=== PATIENT | female | born 1980 | race Caucasian/White ===

== ENCOUNTER 2016-10-30 07:36 | Emergency (ER) | payer BC ==
[2016-10-30 07:51] VITALS: BP 163/94
--- NOTE | 2016-10-30 08:10 | UC ---
Eye Complaint HPI - HPI Summary HPI Summary: 36 YEAR OLD FEMALE PRESENTS WITH LEFT EYE REDNESS/DISCHARGE X 1 DAY. - History of Current Complaint Chief Complaint: UCEye Stated Complaint: EYE COMPLAINT Time Seen by Provider: 10/30/16 08:07 Hx Last Menstrual Period: 10/05/16 - Allergies/Home Medications Allergies/Adverse Reactions: Allergies Allergy/AdvReac Type Severity Reaction Status Date / Time Amoxicillin Allergy Severe RASH/HIVES Verified 06/15/15 07:23 PMH/Surg Hx/FS Hx/Imm Hx - Surgical History Surgical History: Yes Surgery Procedure, Year, and Place: tonsils ,wisdom teeth - Family History Known Family History: Positive: Hypertension - Social History Alcohol Use: None Substance Use Type: None Smoking Status (MU): Never Smoked Tobacco Review of Systems Constitutional: Negative Skin: Negative Eyes: Drainage, Eye Redness ENT: Negative Respiratory: Negative Cardiovascular: Negative Gastrointestinal: Negative Genitourinary: Negative Motor: Negative Neurovascular: Negative Musculoskeletal: Negative Neurological: Negative Psychological: Negative All Other Systems Reviewed And Are Negative: Yes Physical Exam Triage Information Reviewed: Yes Vital Signs: Initial Vital Signs Temp 36.6 C 10/30/16 07:47 Pulse 79 10/30/16 07:47 Resp 16 10/30/16 07:47 BP 163/94 10/30/16 07:47 Pulse Ox 100 10/30/16 07:47 Eyes: Positive: Conjunctiva Inflamed, Discharge ENT Exam: Normal Dental Exam: Normal Neck exam: Normal Neck: Positive: 1 Respiratory Exam: Normal Cardiovascular Exam: Normal Abdominal Exam: Normal Musculoskeletal Exam: Normal Neurological Exam: Normal Psychological Exam: Normal Skin Exam: Normal Eye Complaint Course/Dx - Differential Dx/Diagnosis Provider Diagnoses: ALLERGIC CONJUNCTIVITIS LEFT EYE Discharge - Discharge Plan Condition: Stable Disposition: HOME Prescriptions: Polymyx/Trimethoprim OPTH* [Polytrim OPHTH*] 1 drop LEFT EYE Q6H #1 btl Referrals: Darío Bethea MD [Primary Care Provider] - If Needed
== END 2016-10-30 08:16 | disposition home or self-care (01) ==
LOC: UCEAST 07:36
DX: H10.12 Acute atopic conjunctivitis, left eye (principal); Z88.1 Allergy status to other antibiotic agents
CPT/HCPCS: 99212; G0463

== ENCOUNTER 2018-06-30 17:17 | Emergency (ER) | payer BC ==
[2018-06-30 17:27] VITALS: BP 156/100
--- NOTE | 2018-06-30 17:33 | UC ---
Head Injury HPI - HPI Summary HPI Summary: 37 yo female presents with head injury. She tells me that earlier today she was [place] at [place]. She fell and hit the back of her head. She was wearing a helmet. Had a mild headache at the time. Was able to get to her feet and ski down the rest of the mountain. On her way home she, admittedly, became nervous that she lives alone and wants to make sure she is "okay". Currently she has no symptoms. Denies headache, dizziness, vision changes, weakness, n/v. - History Of Current Complaint Chief Complaint: UCHeadInjury Stated Complaint: HEAD INJURY Time Seen by Provider: 06/30/18 17:32 Hx Obtained From: Patient Hx Last Menstrual Period: Jun 16 Onset/Duration: Sudden Onset Severity Currently: None Severity Initially: Mild Pain Intensity: 0 - Allergies/Home Medications Allergies/Adverse Reactions: Allergies Allergy/AdvReac Type Severity Reaction Status Date / Time amoxicillin Allergy Severe Hives Verified 06/30/18 17:27 Home Medications: Home Medications Meclizine TAB* [Antivert 12.5 TAB*] 12.5 mg PO TID PRN 06/30/18 [History Confirmed 06/30/18] PMH/Surg Hx/FS Hx/Imm Hx Endocrine History: Hypothyroidism Cardiovascular History: Hypertension - Surgical History Surgical History: Yes Surgery Procedure, Year, and Place: tonsils ,wisdom teeth - Family History Known Family History: Positive: Hypertension - Social History Occupation: Employed Full-time Lives: With Family Alcohol Use: None Substance Use Type: None Smoking Status (MU): Never Smoked Tobacco Review of Systems All Other Systems Reviewed And Are Negative: Yes Constitutional: Positive: Negative Skin: Positive: Negative Respiratory: Positive: Negative Cardiovascular: Positive: Negative Gastrointestinal: Positive: Negative Neurovascular: Positive: Negative Musculoskeletal: Positive: Negative Neurological: Positive: Negative Psychological: Positive: Negative Physical Exam - Summary Physical Exam Summary: GENERAL: NAD. WDWN. No pain distress. SKIN: No rashes, sores, ulcers, masses, lesions. HEENT: Head: AT/NC. No raccoon eyes or battles sign. Eyes: PERRLA. EOM intact. Conjunctiva clear without inflammation or discharge. Ears: Hearing grossly normal. TMs intact, no bulging, erythema, or edema. No hemotympanum Nose: Nasal mucosa pink and moist. NTTP maxillary and frontal sinus. Throat: Posterior oropharynx without exudates, erythema, or tonsillar enlargement. Uvula midline. NECK: Supple. Nontender. FROM CHEST: CTAB. No r/r/w. No accessory muscle use. Breathing comfortably and in no distress. CV: RRR. Without m/r/g. Pulses intact. Brisk cap refill. MSK: FROM in B/L UEs and LEs with symmetric strength. NEURO: A&Ox3. 3 word recall, remote, recent memory, ability to follow 2-step directions, and attention intact. CN: II: Peripheral hubbard intact. Vision normal. III, IV, : EOMI. No nystagmus. PERRLA. V: Sensations intact and symmetric. Opens mouth and clenches teeth. VII: No facial asymmetry. Forehead wrinkles. Grins, shuts eyes, frowns, puffs cheeks. VIII: Hearing intact to finger rub. IX, X: Swallows and coughs. Uvula midline. XI: Shrugs shoulders. Turns head against resistance. XII: No tongue deviation [id number] are intact. Gait with normal base. Romberg: maintains balance, no pronator drift. Normal speech. No facial drooping. PSYCH: Age appropriate behavior. Triage Information Reviewed: Yes Vital Signs: Initial Vital Signs Temp 99.6 F 06/30/18 17:21 Pulse 100 06/30/18 17:21 Resp 16 06/30/18 17:21 BP 156/100 06/30/18 17:21 Pulse Ox 100 06/30/18 17:21 Vital Signs Reviewed: Yes Head Injury Course/Dx - Course Course Of Treatment: Discussed low impact injury, no symptoms, and normal exam with pt. Advised to monitor symptoms and f/u, but she prefers to have a head CT today. CT was performed and was negative. - Differential Dx/Diagnosis Provider Diagnosis: Head injury Discharge - Sign-Out/Discharge Documenting (check all that apply): Patient Departure All imaging exams completed and their final reports reviewed: Yes - Discharge Plan Condition: Stable Disposition: HOME Patient Education Materials: Head Injury (ED) Referrals: Darío Bethea MD [Primary Care Provider] - Additional Instructions: If you develop a fever, shortness of breath, chest pain, new or worsening symptoms - please call your PCP or go to the ED. Your blood pressure was high at todays visit. Please see your primary provider within 4 weeks for recheck and re-evaluation. 1) Your exam and scan of your head were normal 2) You may have a headache over the next few days and may take tylenol or ibuprofen for discomfort 3) If you develop a severe headache, dizziness, vision changes, numbness, or weakness - please go to the ER - Billing Disposition and Condition Condition: STABLE Disposition: Home
== END 2018-06-30 18:28 | disposition home or self-care (01) ==
LOC: UCEAST 17:17
DX: S09.90XA Unspecified injury of head, initial encounter (principal); W01.0XXA Fall on same level from slipping, tripping and stumbling without subsequent striking against object, initial encounter; Y92.9 Unspecified place or not applicable
CPT/HCPCS: 70450; 99211; G0463